=== PATIENT | female | born 1980 | race Caucasian/White ===

== ENCOUNTER → 2018-03-02 11:03 | Outpatient (REF) | payer MEDICAID, SELFPAY | LOC: LAB 11:03 | PROVIDERS: Visit Provider Physician Assistant | DX: R31.9 Hematuria, unspecified (principal) | CPT/HCPCS: 87086; 87088; 87186 ==

== ENCOUNTER 2018-03-23 11:06 | Outpatient (CLI) | payer MEDICAID, SELFPAY ==
[2018-03-23 13:46] VITALS: BMI 20.3
--- NOTE | 2018-03-23 13:50 | XR_ITS ---
XR chest portable PICC plac HISTORY: ITS.REASON: PICC line placement ORDERING PHYSICIAN: LEANN Zuniga PATIENT AGE: 37 years COMPARISON: None FINDINGS: The cardiomediastinal silhouette and pulmonary vascularity are within normal limits. The lungs are clear without infiltrates, suspicious nodules, or pleural effusions. PICC line has been placed by the left upper extremity approach with the tip in good position in the region of the superior vena cava. No acute bony abnormalities. IMPRESSION: Good position of PICC line tip
[2018-03-23 14:01] VITALS: BMI 18.1
[2018-03-23 14:32] VITALS: BP 109/69; PULSE 78; RESP 18; TEMP 36.5; O2SAT 99
[2018-03-23 15:02] VITALS: BP 105/67; PULSE 74; RESP 18; O2SAT 99
[2018-03-23 15:15] VITALS: BP 105/63; PULSE 71; RESP 18; O2SAT 98
== END 2018-03-23 15:20 | disposition home or self-care (01) ==
LOC: LAB 12:44 → INF 13:48
PROVIDERS: PCP Physician Assistant; Visit Provider Physician Assistant
DX: N39.0 Urinary tract infection, site not specified (principal)
CPT/HCPCS: 36569; 71045; 87086; 87088; 87186; 96365; C1751

== ENCOUNTER 2018-03-24 13:34 | Outpatient (CLI) | payer MEDICAID, SELFPAY ==
[2018-03-24 13:50] VITALS: BP 84/47; PULSE 74; RESP 18; TEMP 36.9; O2SAT 98
[2018-03-24 14:10] VITALS: BP 101/54; PULSE 75; RESP 18; TEMP 36.6; O2SAT 98
[2018-03-24 14:30] VITALS: BP 110/54; PULSE 69; RESP 18; TEMP 36.6; O2SAT 97
== END 2018-03-24 14:40 | disposition home or self-care (01) ==
LOC: INF 13:34
PROVIDERS: Family Provider Nurse Practitioner Family; PCP Physician Assistant; Visit Provider Physician Assistant
DX: N39.0 Urinary tract infection, site not specified (principal)
CPT/HCPCS: 96365

== ENCOUNTER 2018-03-25 12:50 | Outpatient (CLI) | payer MEDICAID, SELFPAY ==
[2018-03-25 12:45] VITALS: BP 89/46; PULSE 74; RESP 18; TEMP 36.7; O2SAT 99
[2018-03-25 13:15] VITALS: BP 92/49; PULSE 78; RESP 18; O2SAT 98
[2018-03-25 13:25] VITALS: BP 94/50; PULSE 75; RESP 18; O2SAT 98
== END 2018-03-25 13:25 | disposition home or self-care (01) ==
LOC: INF 13:07
PROVIDERS: Family Provider Nurse Practitioner Family; PCP Physician Assistant; Visit Provider Physician Assistant
DX: N30.01 Acute cystitis with hematuria (principal); N39.0 Urinary tract infection, site not specified
CPT/HCPCS: 36569; 96365

== ENCOUNTER 2018-03-26 12:15 | Outpatient (CLI) | payer MEDICAID, SELFPAY ==
[2018-03-26 12:35] VITALS: BP 93/63; PULSE 82; RESP 16
[2018-03-26 13:05] VITALS: BP 91/68; PULSE 86; RESP 16
== END 2018-03-26 13:25 | disposition home or self-care (01) ==
LOC: INF 12:18
PROVIDERS: Family Provider Nurse Practitioner Family; PCP Physician Assistant; Visit Provider Physician Assistant
DX: N39.0 Urinary tract infection, site not specified (principal)
CPT/HCPCS: 96365; J1335

== ENCOUNTER 2018-03-27 12:53 | Outpatient (CLI) | payer MEDICAID, SELFPAY ==
[2018-03-27 13:18] VITALS: BP 104/57; PULSE 79; RESP 16; TEMP 36.6; O2SAT 98
[2018-03-27 13:41] VITALS: BP 102/77; PULSE 76; RESP 16; TEMP 36.6; O2SAT 98
== END 2018-03-27 13:42 | disposition home or self-care (01) ==
PROVIDERS: Family Provider Nurse Practitioner Family; PCP Physician Assistant; Visit Provider Physician Assistant
DX: N39.0 Urinary tract infection, site not specified (principal)
CPT/HCPCS: 96365; J1335

== ENCOUNTER 2018-03-28 12:25 | Outpatient (CLI) | payer MEDICAID, SELFPAY ==
[2018-03-28 12:38] VITALS: BP 92/55; BP 94/54; PULSE 73; PULSE 81; RESP 18; RESP 20; TEMP 36.4; TEMP 36.7; O2SAT 100; O2SAT 96
== END 2018-03-28 13:13 | disposition home or self-care (01) ==
LOC: INF 12:26
PROVIDERS: Family Provider Nurse Practitioner Family; PCP Physician Assistant; Visit Provider Physician Assistant
DX: N39.0 Urinary tract infection, site not specified (principal)
CPT/HCPCS: 96365; J1335

== ENCOUNTER 2018-03-29 12:25 | Outpatient (CLI) | payer MEDICAID, SELFPAY ==
[2018-03-29 12:45] VITALS: BP 94/55; PULSE 72; RESP 18; TEMP 37
[2018-03-29 13:15] VITALS: BP 94/60; PULSE 78; RESP 18
== END 2018-03-29 13:45 | disposition home or self-care (01) ==
LOC: INF 12:32
PROVIDERS: Family Provider Nurse Practitioner Family; PCP Physician Assistant; Visit Provider Physician Assistant
DX: N39.0 Urinary tract infection, site not specified (principal)
CPT/HCPCS: 96365; J1335

== ENCOUNTER 2018-03-30 12:53 | Outpatient (CLI) | payer MEDICAID, SELFPAY ==
[2018-03-30 13:20] VITALS: BP 90/61; PULSE 68; RESP 20; TEMP 36.7; O2SAT 96
[2018-03-30 13:55] VITALS: BP 102/68; PULSE 68; RESP 20; TEMP 37.1; O2SAT 98
== END 2018-03-30 14:00 | disposition home or self-care (01) ==
LOC: INF 12:54
PROVIDERS: Family Provider Nurse Practitioner Family; PCP Physician Assistant; Visit Provider Physician Assistant
DX: N39.0 Urinary tract infection, site not specified (principal)
CPT/HCPCS: 96365; J1335

== ENCOUNTER 2018-04-06 16:37 | Outpatient (CLI) | payer MEDICAID, SELFPAY ==
[2018-04-06 16:46] VITALS: BP 122/70; PULSE 68; RESP 20; TEMP 37.1; O2SAT 98
== END 2018-04-06 16:45 | disposition home or self-care (01) ==
LOC: INF 16:37
PROVIDERS: Family Provider Nurse Practitioner Family; PCP Physician Assistant; Visit Provider Physician Assistant
DX: Z45.2 Encounter for adjustment and management of vascular access device (principal)
CPT/HCPCS: G0463

== ENCOUNTER → 2018-08-09 11:56 | Outpatient (CLI) | payer MEDICAID, SELFPAY ==
--- NOTE | 2018-08-09 11:58 | XR_ITS ---
XR lumbar spine min 4V Ordering Physician: LEANN Zuniga Patient Age: 37 years: Female HISTORY: ITS.REASON: Low back pain Low back pain for several months. No injury. TECHNIQUE: 5 view lumbar spine series COMPARISON :None FINDINGS the lumbar vertebral bodies are intact. Normal alignment. No acute fracture nor subluxation. The pedicles intact. I would note that S1 is somewhat transitional in character and demonstrates localization on the left but is sacralized on the right. Segmentation between S1 and S2 vertebral segments. . Degenerative facet changes suggested at L5/S1 most evident. Narrowing and sclerosis at this facet with perhaps minimal hypertrophy. Right greater than left. . There may also be some mild enlargement, mild prominence of the right L3/4 facet as seen particularly on the frontal projection. Pedicles are intact There is a vertical line through the left L1 transverse process. Most likely developmental variant. Less likely old injury here. . In either case this appearance unchanged since a October 2014 CXR. The transverse processes unremarkable by plain film. . There is a slightly irregular contour at the inferior sacrum could not exclude old injury here The patient is surprisingly extensive costochondral calcifications for age throughout partially visualized lower ribs. IMPRESSION...... 1. No acute findings. Disc spaces well-maintained throughout 2. 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 Segmentation S1/S2 with Partial lumbarization S1 to the left 3.. Developing Degenerative Hypertrophic facet changes most evident L5/S1, right more than left 4. Suspect mild facet hypertrophy to the right at L3/4 . 5. Other minor observations in text
== END ==
PROVIDERS: PCP Physician Assistant; Visit Provider Physician Assistant
DX: M54.5 Low back pain (principal)
CPT/HCPCS: 72110

== ENCOUNTER 2018-08-30 09:48 | Outpatient (RCR) | payer MEDICAID, SELFPAY ==
--- NOTE | 2018-08-30 10:38 | HMH.PTOPEV ---
PT Outpatient Evaluation Rehab PT Outpatient Evaluation Start: 08/30/18 10:19 Freq: Status: Active Protocol: Document 08/30/18 10:20 ADRIAN (Rec: 08/30/18 10:38 ADRIAN [id number]) Electronically Signed By Randy Fairbanks, PT 08/30/18 10:20 Outpatient Therapy Subjective History Subjective History Pt reports insidious onset LBP beginning ~4 weeks ago. Pt reports midline LBP that radiates into B glut area and B groin area, emil. w/lifting activities. Pt reports decreased pain since starting prescription NSAIDS. Chief Complaint Pain Symptom Type Ache Sharp Dull Symptoms Relieved By Heat Prescription Meds Symptoms Aggravated By Bending/Stooping Physical Activity Walking Lifting Prior Functional Limitations None Current Functional Limitations Lifting Housework Walking Bending/Stooping Symptom Description Intermittent Level of pain today (0-10) 1 Pain scale - at its best (0-10) 0 Pain scale - at its worst (0-10) 8 Lumbopelvic Eval Posture Thoracic Spine Posture Standing Position Neutral Lumbar Spine Posture Standing Position Neutral Assistive device Assistive Devices None / NA Gait Observation General Gait Pattern Observation Antalgic Gait Palapation tenderness right paraspinal tenderness Yes: 3/4 buttock tenderness Yes: 3/4 Lumbar/Sacral Palpation Findings Tenderness left paraspinal tenderness Yes: 1/4 buttock tenderness Yes: 3/4 Lumbar/Sacral Palpation Findings Tenderness Accessory Movement L-spine Vertebrae Accessory Movements Right P/A [place] that Elicit Symptoms S1 right Range of Motion Lumbar Spine Active Flexion Range of 0-80 Motion (degrees) Lumbar Spine Active Extension Range of 0-15 Motion (degrees) Left Lumbar Spine Lateral Flexion Active 0-20 Range of Motion (degrees) Right Lumbar Spine Lateral Flexion 0-20 Active Range of Motion (degrees) Lumbar Spine ROM Limitations Pain Manual Muscle Test Bilateral Knee Extension Strength Grade 5 Normal Knee Flexion Strength Grade 5 Normal Hip Flexion Strength Grade 4- Good- Hip Internal Rotation Strength Grade 4- Good- Hip Extension Strength Grade 4- Good-
== END 2018-08-30 10:00 | disposition home or self-care (01) ==
LOC: PT 09:48
PROVIDERS: Visit Provider Physician Assistant
DX: M54.9 Dorsalgia, unspecified (principal); M54.5 Low back pain
CPT/HCPCS: 97163

== ENCOUNTER → 2018-09-01 15:17 | Outpatient (CLI) | payer MEDICAID, SELFPAY | PROVIDERS: Visit Provider Physician Assistant | DX: R31.9 Hematuria, unspecified (principal) | CPT/HCPCS: 87086; 87088; 87186 ==

== ENCOUNTER → 2018-10-14 14:18 | Outpatient (CLI) | payer MEDICAID, SELFPAY | PROVIDERS: Visit Provider Nurse Practitioner Family | DX: R30.0 Dysuria (principal) | CPT/HCPCS: 87086; 87088; 87186 ==

== ENCOUNTER → 2018-11-05 09:38 | Outpatient (CLI) | payer MEDICAID, SELFPAY ==
--- NOTE | 2018-11-05 09:42 | CT_ITS ---
CT abdomen pelvis wo/w con CLINICAL INDICATION: ITS.REASON: Hematuria, Proteinuria ORDERING PHYSICIAN: Garland Leahy MD PATIENT AGE: 38 years COMPARISON: None TECHNIQUE: Axial images obtained without and with contrast with sagittal and coronal reformats. All CT scans at the facility use one or more dose reduction, viz: automated exposure control, ma/kV adjustment per patient size (including targeted exams where dose is matched to indication, i.e. head), or iterative reconstruction technique. PROCEDURE: Oral Contrast: None IV Contrast: 75 mL of Isovue-370. FINDINGS: The lung bases are clear. The liver, gallbladder, spleen, adrenal glands, and pancreas have an unremarkable appearance. No renal or ureteral calculi. No hydronephrosis. No renal mass. No intestinal obstruction or free air. There is a small umbilical hernia containing fat. Unremarkable appendix. There is prominence of the periuterine vessels and adnexal vessels. This is nonspecific. There are bilateral ovarian cysts measuring up to 3 cm on the right. There is a septated left ovarian cyst which measures 4.5 cm. A small amount fluid is present in the cul-de-sac. On the post enhanced images there is some asymmetric increased density in the left posterior aspect of the urinary bladder. This has a somewhat rounded contour but the margins are ill-defined medially. This may represent mixing of opacified and unopacified urine. A lesion in the urinary bladder at this area is also a consideration. No acute bony anomalies. IMPRESSION: 1. Prominent periuterine and adnexal vessels. Pelvic congestion syndrome is a consideration. 2. Bilateral ovarian cysts measuring 3 cm on the right and 4.5 cm on the left. Left ovarian cyst does have a septation. Pelvic ultrasound may be of further value. 3. Asymmetric increased density in the left aspect of urinary bladder on the post enhanced images. This male and be related to mixing of opacified and unopacified urine. Cannot exclude a lesion at this area in this patient with hematuria. Ultrasound of the urinary bladder may be of further value
== END ==
PROVIDERS: PCP Physician Assistant; Visit Provider Urology
DX: R31.9 Hematuria, unspecified (principal)
CPT/HCPCS: 74178; Q9967

== ENCOUNTER → 2019-05-10 14:27 | Outpatient (CLI) | payer MEDICAID, SELFPAY | PROVIDERS: Visit Provider Nurse Practitioner Family | DX: R10.9 Unspecified abdominal pain (principal); R35.0 Frequency of micturition | CPT/HCPCS: 87086; 87088; 87186 ==

== ENCOUNTER → 2019-06-16 14:28 | Outpatient (CLI) | payer MEDICAID, SELFPAY | PROVIDERS: Visit Provider Urology | DX: C67.9 Malignant neoplasm of bladder, unspecified (principal) | CPT/HCPCS: 87086; 87088; 87186 ==

== ENCOUNTER → 2020-02-16 12:01 | Outpatient (CLI) | payer BC, SELFPAY | PROVIDERS: Visit Provider Urology | DX: N39.0 Urinary tract infection, site not specified (principal) | CPT/HCPCS: 87086; 87088; 87186 ==

== ENCOUNTER 2020-04-14 13:12 | Emergency (ER) | payer BC, SELFPAY ==
[2020-04-14 13:33] VITALS: BP 104/67; PULSE 82; RESP 18; TEMP 36.8; O2SAT 100; BMI 17.6
--- NOTE | 2020-04-14 14:04 | HMH.EDUTC ---
[facility] [place] Clinical Impression: Impacted cerumen of left ear Disposition: Home, Self-Care Condition on Discharge: Good Instructions: DI for Cerumen Impaction, Cerumen Impaction Additional Instructions: Continue to use Debrox as instructed on package as needed for Cerumen impaction *FOllow up with Family Doctor if needed Return if needed Straight to ER if any life threatening symptoms Referrals: Bebeto Loera [Primary Care Provider] - As needed Time of Disposition: 14:23 Medical Decision Making - Rony Inquiry Pt receiving controlled substance: No Rony was queried for this patient: No Vital Signs: 04/14/20 13:33 Temperature 98.2 F Temperature Source Oral Pulse Rate [Right Brachial] 82 Respiratory Rate 18 Blood Pressure [Right Arm] 104/67 L Blood Pressure Mean [Right Arm] 79 Blood Pressure Source [Right Arm] Automatic Cuff Blood Pressure Position [Right Arm] Sitting 02 Sat by Pulse Oximetry 100 Oxygen Delivery Method Room Air [facility] [place] HPI - General Stated complaint: ear pain Time Seen by Provider: 04/14/20 14:05 Mode of Arrival: Ambulatory Source of Information: Patient Limitations: No Limitations Description of Symptoms (Recalled from Triage Doc. by RN): PATIENT C/O LEFT EAR ACHE X 4 DAYS HEENT Symptoms (Recalled from RN notes): Yes Resp Symptoms (Recalled from RN notes): No Skin Symptoms (Recalled from RN notes): No MS Symptoms (Recalled from RN notes): No Functional Status (Recalled from RN notes): WNL - History of Present Illness Provider Complaint: Patient states that it feels like there is something stopping up her left ear States that she bought some over the counter Debrox and has been using it but not been able to get anything out States that she hasnt been able to hear out of it and not sure if she has an ear infection or her ear is stopped up - Related Data Previous Rx's Medication Instructions Recorded linaclotide 290 mcg capsule See Rx Instructions .ROUTE 05/12/19 .COMPLEX #90 cap nitrofurantoin macrocrystal 100 mg 100 mg PO Q12H 7 Days #14 cap 05/12/19 capsule pantoprazole 40 mg tablet,delayed 40 mg PO DAILY #30 tab 05/12/19 release omeprazole 40 mg capsule,delayed See Rx Instructions .ROUTE 08/18/19 release .COMPLEX #90 cap Allergies Allergy/AdvReac Type Severity Reaction Status Date / Time sulfamethoxazole Allergy Rash Verified 02/16/20 10:21 [From Bactrim] trimethoprim [From Bactrim] Allergy Rash Verified 02/16/20 10:21 - Worker's Comp Is this a Worker's Comp case?: No [facility] History - Hepatitis A Screen Drug use history?: No High risk sexual behaviors?: No History of sexually transmitted infection?: No Currently employed?: No Childcare worker?: No Do you have indoor plumbing?: Yes Do you have electricity?: Yes Attestation statement:: This patient has been screened for Hepatitis A risk factors. I have reviewed the patient's past medical history: Yes Medical History: Reports:: Anxiety, Depression, Gastroesophageal Reflux Disease(GERD) Denies:: Cancer, Diabetes Mellitus Type 1, Diabetes Mellitus Type 2, Internal Pacemaker, MRSA, Seizures Other Medical History: Reports: Other. Denies: Blood Transfusion Reaction Comment: CONSTIPATION Other Surgeries: Yes: No Previous Surgery, Tubal Ligation, Other. No: Cardiac Catheterization, Pacemaker Amputation: No Fractures: No Comment: PPBTL--2016,cystoscopy with removal bladder tumor - Social History Smoking Status: Current every day smoker Tobacco Type: cigarettes # Packs/Day (cigarettes): 1 #Yrs smoked (if former smoker): 20 Alcohol Intake: never Alcohol Intake Frequency:: a few times a month Substance Use Type: denies use Occupational Status: other Housing: house Household Members: spouse, children - Psychiatric History Pschychiatric History:: Reports:: Anxiety, Depression Family Hx:: Coronary Artery Disease, Cancer, Hyperlipidemia, Hypertension ROS Obtained: Yes All systems revi
[2020-04-14 14:25] VITALS: BP 104/67; PULSE 82; RESP 18; TEMP 36.8; O2SAT 100
== END 2020-04-14 14:28 | disposition home or self-care (01) ==
LOC: ER 13:19 → UTC 13:28
PROVIDERS: Emergency Provider Nurse Practitioner; PCP Internal Medicine
DX: H92.02 Otalgia, left ear (principal); H61.22 Impacted cerumen, left ear; K21.9 Gastro-esophageal reflux disease without esophagitis; F41.8 Other specified anxiety disorders; F17.210 Nicotine dependence, cigarettes, uncomplicated; Z88.2 Allergy status to sulfonamides
CPT/HCPCS: 99201

== ENCOUNTER → 2020-08-18 08:17 | Outpatient (CLI) | payer BC, SELFPAY ==
[2020-08-18 12:53] LABS: Coronavirus 19 IgG Antibody Negative (Negative); Coronavirus 19 IgM Antibody Negative (Negative)
== END ==
PROVIDERS: Visit Provider Urology
DX: Z01.818 Encounter for other preprocedural examination (principal); C67.9 Malignant neoplasm of bladder, unspecified
CPT/HCPCS: 36415; 86328

== ENCOUNTER 2020-08-20 08:33 | Day surgery (SDC) | payer BC, SELFPAY ==
[2020-08-16 13:37] VITALS: BMI 17.6
[2020-08-20 08:49] VITALS: BP 97/60; PULSE 86; RESP 14; TEMP 36.7; O2SAT 100
[2020-08-20 09:40] VITALS: BP 100/65; PULSE 74; RESP 16; TEMP 36.6; O2SAT 100
--- NOTE | 2020-08-20 12:02 | P.OP_ITS ---
Date of procedure: 08/20/20 Pre-op Diagnosis:: History of bladder cancer Post-op Diagnosis:: History of bladder cancer Procedure performed:: Surveillance cystoscopy Surgeon:: Garland Leahy MD Anesthesia: local Estimated blood loss (mL): 0 Clinical Note:: 39-year-old white female with history of superficial bladder cancer presents for her first 6-month cystoscopic evaluation. She denies any interval gross hematuria. She does continue to smoke. Operative findings:: No evidence of bladder tumor recurrence Operative note:: Patient taken to the operating room after informed consent was obtained. She was placed on the stretcher in the frog-leg position and prepped and draped in the standard surgical fashion. 2% lidocaine placed into the urethra and after 5 minutes the flexible cystoscope introduced into the urethral meatus. Passed into the bladder without difficulty and the bladder examined in a systematic fas hion. There is no evidence of recurrent bladder tumors. There is no evidence of stones, trabeculation or cellule formation. There was some squamous metaplasia around the bladder neck and anterior trigonal region. The ureteral orifices in their normal anatomic position with clear efflux of urine noted. The bladder neck and urethra were normal as well. The scope removed patient tolerated procedure well. We discussed the normal findings today and I will send her home on a prophylactic course of Macrobid see her back in 6 months for cystoscopy. Condition: stable Disposition: same day Specimens:: None Complications:: None
--- NOTE | 2021-02-18 12:49 | P.OP_ITS ---
Date of procedure: 02/18/21 Pre-op Diagnosis:: History of bladder cancer Post-op Diagnosis:: No recurrence Procedure performed:: Surveillance cystoscopy Surgeon:: Garland Leahy MD Anesthesia: local Estimated blood loss (mL): 0 Clinical Note:: Patient with history of bladder cancer presents for her second 6-month cystoscopy. She denies any interval hematuria. She does continue to smoke. Operative findings:: No evidence of bladder tumor recurrence. Operative note:: Patient taken to the cystoscopy suite after informed consent was obtained. On the stretcher she was placed in the frog-leg position and prepped and draped in the standard surgical fashion. 2% lidocaine placed into the urethra and after 5 minutes the flexible cystoscope introduced into the urethral meatus and into the bladder. There was some mild resistance at the bladder neck. The bladder was examined in a systematic fashion. There is no evidence of mucosal abnormalities, stones, bladder tumor recurrence, trabeculation or cellule formation. The ureteral orifices in their normal anatomic position and clear efflux of urine was noted from each. A mild amount of squamous metaplasia noted at the 6 o'clock position near the bladder neck. Bladder neck and urethra were normal. Scope removed patient tolerated procedure well there are no com plications. We discussed the findings today we will see her back in 1 year in follow-up. Condition: stable Disposition: same day Specimens:: None Complications:: None
== END 2020-08-20 09:55 | disposition home or self-care (01) ==
LOC: OUTP 08:34
PROVIDERS: PCP Internal Medicine; Visit Provider Urology
PROC: (CPT 52000; principal; 2020-08-20 09:00)
DX: Z08 Encounter for follow-up examination after completed treatment for malignant neoplasm (principal); Z85.51 Personal history of malignant neoplasm of bladder; N32.89 Other specified disorders of bladder; Z90.6 Acquired absence of other parts of urinary tract; Z88.2 Allergy status to sulfonamides; Z79.899 Other long term (current) drug therapy
CPT/HCPCS: 52000

== ENCOUNTER → 2021-02-15 08:11 | Outpatient (CLI) | payer BC, SELFPAY | PROVIDERS: Visit Provider Urology | DX: Z01.812 Encounter for preprocedural laboratory examination (principal); Z11.52 Encounter for screening for COVID-19; C67.9 Malignant neoplasm of bladder, unspecified | CPT/HCPCS: U0003 ==

== ENCOUNTER 2021-02-18 09:28 | Day surgery (SDC) | payer BC, SELFPAY ==
[2021-02-13 11:45] VITALS: BMI 17.8
[2021-02-18 09:54] VITALS: BP 110/61; PULSE 86; RESP 18; TEMP 36.6; O2SAT 99
[2021-02-18 11:55] VITALS: BP 90/59; PULSE 72; RESP 20; TEMP 37.1; O2SAT 100
--- NOTE | 2021-02-21 15:44 | HMH.OPNOTE ---
Date of procedure: 02/21/21 Pre-op Diagnosis:: History of bladder cancer Post-op Diagnosis:: No evidence of bladder cancer recurrence today Procedure performed:: Surveillance cystoscopy Surgeon:: Garland Leahy MD Anesthesia: local Estimated blood loss (mL): 0 Clinical Note:: 40-year-old white female with history of bladder cancer returns for her second 6-month cystoscopy. She denies any interval hematuria. She does continue to smoke. Operative findings:: No evidence of bladder tumor recurrence. Operative note:: Patient taken to the cystoscopy suite after informed consent was obtained. On the stretcher she was placed in the frog-leg position and prepped draped in the standard surgical fashion and 2% lidocaine placed into the urethra. After 5 minutes the flexible cystoscope introduced into the urethral meatus and passed to the bladder neck, there was a little bit of resistance but scope passed into the bladder with minimal difficulty. The bladder was examined in a systematic fashion. There is no evidence of bladder tumor recurrence, mucosal abnormalities, stones, trabeculation or diverticular formation. The ureteral orifices in their normal anatomic position and clear efflux of urine was noted. The bladder neck and urethra were within normal limits. The scope removed patient tolerated the procedure well there are no complications. We will see her back in 1 year for surveillance cystoscopy. Condition: stable Disposition: same day Specimens:: None Complications:: None
== END 2021-02-18 11:55 | disposition home or self-care (01) ==
LOC: OUTP 09:30
PROVIDERS: PCP Internal Medicine; Visit Provider Urology
PROC: (CPT 52000; principal; 2021-02-18 10:30)
DX: Z85.51 Personal history of malignant neoplasm of bladder (principal); Z08 Encounter for follow-up examination after completed treatment for malignant neoplasm; K21.9 Gastro-esophageal reflux disease without esophagitis; F41.9 Anxiety disorder, unspecified; F32.9 Major depressive disorder, single episode, unspecified; Z88.1 Allergy status to other antibiotic agents; Z79.899 Other long term (current) drug therapy
CPT/HCPCS: 52000

== ENCOUNTER → 2022-02-14 14:38 | Outpatient (CLI) | payer BC, SELFPAY | PROVIDERS: Visit Provider Pathology Anatomic Pathology & Clinical Pathology | DX: Z01.812 Encounter for preprocedural laboratory examination (principal); Z11.52 Encounter for screening for COVID-19; C67.9 Malignant neoplasm of bladder, unspecified | CPT/HCPCS: C9803; U0003; U0005 ==

== ENCOUNTER 2022-02-17 09:43 | Day surgery (SDC) | payer BC, SELFPAY ==
[2022-02-14 10:53] VITALS: BMI 17.8
[2022-02-17 09:55] VITALS: BP 107/67; PULSE 75; RESP 18; TEMP 37.6; O2SAT 100
[2022-02-17 10:24] VITALS: BP 94/62; PULSE 67; RESP 16; TEMP 36.7; O2SAT 99
--- NOTE | 2022-02-17 10:32 | P.OP_ITS ---
Date of procedure: 02/17/22 Pre-op Diagnosis:: History of bladder cancer Post-op Diagnosis:: History of bladder cancer without evidence of recurrence today. Procedure performed:: Cystoscopy Surgeon:: Garland Leahy MD Anesthesia: local Estimated blood loss (mL): 0 Clinical Note:: 41-year-old white female with history of bladder cancer returns for 1 year cystoscopy. She denies any gross hematuria. Operative findings:: No evidence of bladder tumor recurrence today. Operative note:: Patient taken to the endoscopy suite after informed consent was obtained. On the stretcher she was placed in the frog-leg position and prepped and draped in a standard surgical fashion introducing lidocaine placed into the urethra. Aft er 5 minutes the flexible cystoscope introduced into the urethral meatus. Passed into the bladder without difficulty and the bladder examined in a systematic fashion. There is no evidence of bladder tumor recurrence, mucosal abnormalities, trabeculation, cellules or diverticula. The ureteral orifices in their normal anatomic position with clear efflux of urine. The scope was retroflexed showing no evidence of bladder neck abnormalities. The scope then removed and the urethra appeared normal. Patient tolerated well we discussed the findings we will see her back in 1 year follow-up. Condition: stable Disposition: same day Specimens:: None Complications:: None
== END 2022-02-17 10:30 | disposition home or self-care (01) ==
LOC: OUTP 09:44
PROVIDERS: PCP Internal Medicine; Visit Provider Urology
PROC: (CPT 52000; principal; 2022-02-17 10:00)
DX: Z08 Encounter for follow-up examination after completed treatment for malignant neoplasm (principal); Z85.51 Personal history of malignant neoplasm of bladder; Z87.19 Personal history of other diseases of the digestive system; Z90.49 Acquired absence of other specified parts of digestive tract; F41.9 Anxiety disorder, unspecified; F32.A Depression, unspecified; K21.9 Gastro-esophageal reflux disease without esophagitis; Z88.1 Allergy status to other antibiotic agents; Z79.899 Other long term (current) drug therapy
CPT/HCPCS: 52000

== ENCOUNTER 2024-01-29 14:05 | Outpatient (CLI) | payer BC, SELFPAY ==
--- NOTE | 2024-01-29 14:15 | XR_ITS ---
FINAL REPORT CLINICAL HISTORY: ABN PROMINENCE OF RIB FINDINGS: BILATERAL RIBS WITH CHEST A single PA view of the chest and 4 views of the bilateral ribs were obtained. The heart and mediastinum within normal limits. The lungs are clear. There is no pneumothorax. There is no acute displaced rib fracture. There is dense calcification of the costochondral cartilage. IMPRESSION: No acute cardiopulmonary process or displaced rib fracture. Reviewed, Interpreted and Dictated by Isai Simons MD Transcribed by Neelima Rojas Authenticated and . [facility]
== END 2024-01-29 23:59 | disposition home or self-care (01) ==
LOC: RAD 14:06
PROVIDERS: PCP Nurse Practitioner Family; Visit Provider Nurse Practitioner Family
DX: Q76.6 Other congenital malformations of ribs (principal)
CPT/HCPCS: 71111

== ENCOUNTER 2025-03-26 11:23 | Emergency (ER) | payer MEDICAID, SELFPAY ==
[2025-03-26] VITALS (9 sets, daily range): BP systolic 103–123; BP diastolic 60–76; PULSE 59–86; RESP 14–18; TEMP 36.8–36.9; O2SAT 96–100; BMI 16.2
--- OUTSIDE RECORDS SUMMARY | 2025-03-26 11:35 | XMS_ITS | Data Portability ---
Author Organization [facility] & QUAN Gray ADMIN Address [address] [place] [address] Assessment No assessment recorded. Plan of Treatment Reminders Order Date Submit Date Provider Last Modified By Organization Details Last Modified Time Details Appointments OV EST 15 2025 10:00A M Garland Leahy Jr, MD Not available Not available Not available Lab urinalysi s, dipstick 2023 05 024 [email or web address] [facility] [address], [address], 02/22/2024 08:00:42 Referral None recorded. Procedures None recorded. Surgeries None recorded. Imaging None recorded. Medication Orders None recorded. Patient TargetsNo targets recorded. Patient InstructionsNo instructions recorded. Reason for Referral None Reported. Results Created Date Observation Date Name Description Value Unit Range Abnormal Flag Note LastModifiedBy Organization Detail LastModifiedTime 02/19/20 24 02/19/2024 urina lysis , dipst ick Leukocytes (reference range) negati ve Not Available Adolfo [address], [address], 02/19/2024 11:53:04 02/19/20 24 02/19/2024 urina lysis , dipst ick Nitrite (reference range:) negati ve Not Available Adolfo [address], [address], 02/19/2024 11:53:04 02/19/20 24 02/19/2024 urina lysis , dipst ick Urobilinogen (reference range) 0.2 Not Available [address], [address], 02/19/2024 11:53:04 02/19/20 24 02/19/2024 urina lysis , dipst ick Protein (reference range) negati ve Not Available [address], [address], 02/19/2024 11:53:04 02/19/20 24 02/19/2024 urina lysis , dipst ick pH (reference range 5-8.5) 6.0 Not Available [address], [address], 02/19/2024 11:53:04 02/19/20 24 02/19/2024 urina lysis , dipst ick Blood (reference range:) modera te Not Available [address], [address], 02/19/2024 11:53:04 02/19/20 24 02/19/2024 urina lysis , dipst ick Specific [place] (reference range) 1.020 Not Available [address], [address], 02/19/2024 11:53:04 02/19/20 24 02/19/2024 urina lysis , dipst ick Ketone (reference range) trace Not Available [address], [address], 02/19/2024 11:53:04 02/19/20 24 02/19/2024 urina lysis , dipst ick Bilirubin (reference range) small Not Available [address], [address], 02/19/2024 11:53:04 02/19/20 24 02/19/2024 urina lysis , dipst ick Glucose (reference range) negati ve Not Available Adolfo [facility] [place] [address] [place], [address], 02/19/2024 11:53:04 Result Notes None recorded. Problems Name Problem SNOMED Code Status Onset Date Resolution Date Notes Provider Name and Address Organization Details Recorded Time Kidney stone 94202359 Active 023 Kristen Gee [place], [place] - [facility] [place] [facility] [place] 02/17/2023 09:48:48 Problem Notes None recorded. Procedures Surgical History Date Name Laterality Status Provider Name and Address Organization Details Recorded Time 5 Cystoscopy-Fema le completed Garland Leahy Jr, MD [address] [place] [address], [address], [place], [address], [place] [facility] [place] [facility] [place] 03/01/2025 11:13:05 4 Cystoscopy-Fema le completed Garland Leahy Jr, MD [address] [place] [address], [address], [place], [address], [place] [facility] [place] [facility] [place] 02/19/2024 16:53:54 3 Cystoscopy-Fema le completed Garland Leahy Jr, MD [address] [place] [address], [address], [place], [address], [place] [facility] [place] [facility] [place] 02/17/2023 10:49:52 2 completed Isaiah FLANNERY - [facility] [place] [facility] [place] 02/19/2024 10:15:38 0 Date of Last Pap Smear completed Isaiah FLANNERY - [facility] [place] [facility] [place] 02/19/2024 10:15:38 9 Date of Last Colonoscopy completed Isaiah FLANNERY - [facility] [place] [facility] [place] 02/19/2024 10:15:38 6 ligation of fallopian tube completed Kristen Gee FLANN[place] - [facility] [place] [facility] [place] 02/17/2023 09:49:29 Other completed Isaiah FLANNERY - [facility] [place] [facility] [place] 02/19/2024 10:15:51 Cancer Surgery completed Isaiah FLANNERY - [facility] 02/19/2024 10:15:51 Colonoscopy completed Isaiah FLANNERY [facility] 02/19/2024 10:15:51 Imaging Results None recorded. Procedure Notes None recorded. Medical Equipment None Reported. Allergies No known drug allergies Medications Name Sig Start Date Stop Date Status Note LastModified by Organization Details LastModified Time amoxicillin 500 mg capsule TAKE 1 CAPSULE BY MOUTH THREE TIMES DAILY UNTIL GONE active Not Available Not Available No t Available clindamycin HCl 300 mg capsule TAKE 1 CAPSULE BY MOUTH THREE TIMES DAILY FOR 7 DAYS active Not Available Not Available No t Available Retin-A 0.025 % topical cream APPLY A PEA SIZE AMOUNT TO FACE AT BEDTIME. FOLLOW WITH MOISTURIZ ER active Not Available Not Available No t Available ibuprofen 800 mg tablet TAKE 1 TABLET BY MOUTH EVERY 8 HOURS NEEDED FOR PAIN active Not Available Not Available No t Available fluconazole 150 mg tablet TAKE 1 TABLET BY MOUTH A ONE TIME DOSE REPEAT IN 3 DAYS active Not Available Not Available No t Available ciprofloxac in 250 mg tablet TAKE 1 TABLET BY MOUTH EVERY 12 HOURS FOR 7 DAYS active Not Available Not Available No t Available omeprazole 40 mg capsule,del ayed release active Not Available Not Available Not Available amoxicillin 875 mg tablet 02/16 completed Not Available Not Available Not Available hydrocodone 7.5 mg-acetamin ophen 325 mg tablet TAKE 1 TABLET BY MOUTH EVERY 4 TO 6 HOURS NEEDED FOR PAIN active Not Available Not Available No t Available mupirocin 2 % topical ointment APPLY OINTMENT TOPICALLY TWICE DAILY FOR 7 DAYS active Not Available Not Available No t Available ergocalcife rol (vitamin D2) 1,250 mcg (50,000 unit) capsule TAKE 1 CAPSULE BY MOUTH TWICE A WEEK active Not Available Not Available No t Available ondansetron 4 mg disintegrat ing tablet DISSOLVE 1 TABLET IN MOUTH EVERY 6 HOURS NEEDED FOR NAUSEA active Not Available Not Available No t Available cefdinir 300 mg capsule TAKE 1 CAPSULE BY MOUTH EVERY 12 HOURS FOR 7 DAYS active Not Available Not Available No t Available amoxicillin 875 mg-potassiu m clavulanate 125 mg tablet TAKE 1 TABLET BY MOUTH EVERY 12 HOURS active Not Available Not Available No t Available nitrofurant oin monohydrate /macrocryst als 100 mg capsule TAKE 1 CAPSULE BY MOUTH TWICE DAILY FOR 5 DAYS active Not Available Not Available No t Available Vitals Date Recorded Body height Body mass index (BMI) Body weight Body temperature Provider Name and Address Organization Details Last Updated DateTime 02/17/2023 170.18 cm 17.4 kg/m2 20469.75 g 98.1 [degF] Kristen Flynn [facility] & [place] 02/17/2023 09:48:21 Date Recorded Body height Body mass index (BMI) Body weight Body temperature Provider Name and Address Organization Details Last Updated DateTime 02/19/2024 170.18 cm 17.4 kg/m2 41852.75 g 97.5 [degF] Isaiah Redman [facility] & [place] 02/19/2024 10:15:25 Date Recorded Body height Body mass index (BMI) Body weight Body temperature Provider Name and Address Organization Details Last Updated DateTime 03/01/2025 170.18 cm 17.4 kg/m2 31383.75 g 98.1 [degF] Darian Cheung [facility] & [place] 03/01/2025 10:24:49 Social History Question Answer Notes LastModified by Embedly ion Details LastModified Time Tobacco Smoking Status Current Some Day Smoker Isaiah Redman [place], [facility] & [place] 02/19/2024 10:15:46 Do You Have An Advance Directive? No [email or web address] Information not available 02/19/2024 Are You Blind Or Do You Have Difficulty Seeing? No [email or web address] Information not available 02/19/2024 What Was The Date Of Your Most Recent Tobacco Screening? 02/15/2023 [email or web address] Information not available 02/19/2024 Are You Passively Exposed To Smoke? Yes [email or web address] Information not available 02/19/2024 How Much Tobacco Do You Smoke? 0.25 PPD [email or web address] Information not available 02/19/2024 How Many Years Have You Smoked Tobacco? 20 [email or web address] Information not available 02/19/2024 Sex: Female Functional Status Question Answer Note LastModified by Organizat ion Details LastModified Time Do you use any illicit or recreational drugs? No [email or web address] Information not available 02/19/2024 Do you or have you ever used any other forms of tobacco or nicotine? No [email or web address] Information not available 02/17/2023 What is your level of alcohol consumption? None [email or web address] Information not available 02/19/2024 Do you or have you ever used smokeless tobacco? Never used smokeless tobacco [email or web address] Information not available 02/19/2024 What is your exercise level? Moderate [email or web address] Information not available 02/19/2024 Mental Status Question Answer Note LastModified by Organization D etails LastModified Time Do you feel stressed (tense, restless, nervous, or anxious, or unable to sleep at night)? [id number] Information not available 02/19/2024 Family History Relationship Description Onset Age of this Age Resolved Age Notes LastModified by Organization Details LastModified Time Father No current problems or disability [email or web address] Not available 02/17 09:48:55 Mother No current problems or disability [email or web address] Not available 02/17 09:48:55 Medical History Condition Response Back Problems Y Gynecological History Statement/Question Response Abnormal Pap N 07/14/2022 Flow Heavy Date of Last Colonoscopy 02/07/2019 Date of LMP 02/02/2023 Sexually Active? Y Menses Monthly Y Duration of Flow (days) 7 Date of Last Pap Smear 04/11/2020 Obstetrics History GPAL:G 0 P 0 0 0 0 Past Encounters Encounter ID Performer Location Encounter Start Date Encounter Closed Date Diagnosis/Indication Diagnosis SNOMED-CT Code Diagnosis ICD10 Code Diagnosis Note [id number] Garland Leahy Jr, MD [facility] [address] [place] [address] 02/17/2023 09:45:11 02/17/2023 10:19:31 History of malignant neoplasm of bladder 526552436 Z85.51 42-year-ol d white female with history of bladder cancer diagnosed in the fall. pathology showed superficia l pathology and she returns today for 1 year surveillan ce cystoscopy . Cystoscopy today showed no evidence of recurrent tumors. She was reassured and we discussed continuing to work on her smoking cessation. She will return in 1 year for surveillan ce cystoscopy . [id number] Garland Leahy Jr, MD [facility] [address] [address] 02/19/2024 09:48:12 02/19/2024 10:50:28 History of malignant neoplasm of bladder 635284984 Z85.51 42-year-ol d white female with history of bladder cancer diagnosed in the fall. pathology showed superficia l pathology and she returns today for 1 year surveillan ce cystoscopy . Cystoscopy today showed no evidence of recurrent tumors. She was reassured and we discussed continuing to work on her smoking cessation. She will return in 1 year for surveillan ce cystoscopy . [id number] Garland Leahy Jr, MD [facility] [address] [address] 03/01/2025 10:08:41 03/01/2025 10:58:12 History of malignant neoplasm 807263567 Z85.51 42-year-ol d white female with history of bladder cancer diagnosed in the fall. pathology showed superficia l pathology and she returns today for 1 year surveillan ce cystoscopy . Cystoscopy today showed no evidence of recurrent tumors. She was reassured and we discussed continuing to work on her smoking cessation. She will return in 1 year for surveillan ce cystoscopy . Health Concerns Section Related Observation LastModified by Organization Detai ls LastModified Time None Recorded Concern Status LastModified by Organization Details LastModified Time None Recorded Advance Directives Directive N: Payers Insurance Date Sequence Insurance Name Policy Number Policy Yusuf Covered Member ID Yusuf Member ID Guarantor Name 03/01/2025 1 [facility] (MEDICAID HMO) [facility] [id number] [facility] 03/01/2025 1 [employer] [employer] [place] (HMO) [id number] [facility] Darrick [place] [id number] [facility] Notes Date Note Type Note Provider Name and Address Organization Details Recorded Time 02/17/2023 text/html Patient is a 42-year-old white female with a history of bladder cancer initially diagnosed in 2019. her last surveillance cystoscopy was 1 year ago without evidence of recurrence. Patient denies any interval hematuria. She has decreased her smoking but does continue. Garland Leahy Jr, MD [address] [place] [address], [address], [place], [address], [facility] - [facility] & [place] 02/17/2023 10:51:09 02/19/2024 text/html Patient is a 43-year-old white female with a history of bladder cancer initially diagnosed in 2019. She comes in today for surveillance cystoscopy. Her last cystoscopy was 1 year ago. She denies any interval hematuria. She has continued to decrease her cigarette intake but is still smoking. Urinalysis dips for moderate amount of blood today. Garland Leahy Jr, MD [address] [place] [address], [address], [address], [facility] - [facility] & [place] 02/19/2024 16:54:29 03/01/2025 text/html Patient is a 44-year-old white female with history of bladder cancer. She was initially diagnosed in 2019. She comes in today for 1 year surveillance cystoscopy. She has not had a recurrence. She continues to smoke cigarettes. She denies any interval hematuria. Pathology showed superficial transitional cell cancer. Garland Leahy Jr, MD [address] [place] [address], [address], [place], [address], [place] - [facility] & [place] 03/01/2025 11:15:47 OBGyn Episode No OBEpisode recorded.
--- OUTSIDE RECORDS SUMMARY | 2025-03-26 11:36 | XMS_ITS | Continuity of Care Document ---
Author Organization [facility] & [facility] [place] Address [address] [place] [address] Assessment No assessment recorded. Plan of Treatment Reminders Order Date Submit Date Provider Last Modified By Organization Details Last Modified Time Details Appointments OV EST 15 026 10:00AM Garland Leahy Jr, MD Not available Not available Not available Lab None record ed. Referral None record ed. Procedures None record ed. Surgeries None record ed. Imaging None record ed. Medication Orders None record ed. Patient TargetsNo targets recorded. Patient InstructionsNo instructions recorded. Reason for Referral None Reported. Problems Name Problem SNOMED Code Status Onset Date Resolution Date Notes Provider Name and Address Organization Details Recorded Time Kidney stone [id number] Active 023 Kristen Flynn cecilia [facility] & [place] 02/17/2023 09:48:48 Problem Notes None recorded. Procedures Surgical History Date Name Laterality Status Provider Name and Address Organization Details Recorded Time 5 Cystoscopy-Fema le completed Garland Leahy Jr, MD [address] [place] [address], [address], [address], [facility] & [place] 03/01/2025 11:13:05 4 Cystoscopy-Fema le completed Garland Leahy Jr, MD [address] [place] [address], [address], [address], [facility] & [place] 02/19/2024 16:53:54 3 Cystoscopy-Fema le completed Garland Leahy Jr, MD [address] [place] [address], [address], [address], [facility] [place] & [place] 02/17/2023 10:49:52 2 completed Isaiah Carlos [facility] & [place] 02/19/2024 10:15:38 0 Date of Last Pap Smear completed Isaiah GLASS [facility] & [place] 02/19/2024 10:15:38 9 Date of Last Colonoscopy completed Isaiah Carlos [facility] & [place] 02/19/2024 10:15:38 6 ligation of fallopian tube completed Kristen Carlos [facility] & [place] 02/17/2023 09:49:29 Other completed Isaiah Carlos [facility] & [place] 02/19/2024 10:15:51 Cancer Surgery completed Isaiah GLASS [facility] & [place] 02/19/2024 10:15:51 Colonoscopy completed Isaiah GLASS [facility] & [place] 02/19/2024 10:15:51 Imaging Results None recorded. Procedure [...] Updated DateTime 03/01/2025 170.18 cm 17.4 kg/m2 30412.75 g 98.1 [degF] Darian Khourygrabiel [facility] & [place] 03/01/2025 10:24:49 Social History Question Answer Notes LastModified by Organizat ion Details LastModified Time Tobacco Smoking Status Current Some Day Smoker Isaiah Redman cec[place], [facility] & [place] 02/19/2024 10:15:46 Do You Have An Advance Directive? No [email or web address] Information not available 02/19/2024 Are You Blind Or Do You Have Difficulty Seeing? No [email or web address] Information not available 02/19/2024 What Was The Date Of Your Most Recent Tobacco Screening? 02/15/2023 [email or web address] Information not available 02/19/2024 Are You Passively Exposed To Smoke? Yes [email or web address] Information not available 02/19/2024 How Much Tobacco Do You Smoke? 0.25 PPD [email or web address] Information not available 02/19/2024 How Many Years Have You Smoked Tobacco? 20 [email or web address] Information not available 02/19/2024 Sex: Female Functional Status Question Answer Note LastModified by Organizat ion Details LastModified Time Do you use any illicit or recreational drugs? No [email or web address] Information not available 02/19/2024 Do you or have you ever used any other forms of tobacco or nicotine? No [email or web address] Information not available 02/17/2023 What is your level of alcohol consumption? None [email or web address] Information not available 02/19/2024 Do you or have you ever used smokeless tobacco? Never used smokeless tobacco [email or web address] Information not available 02/19/2024 What is your exercise level? Moderate Information not available 02/19/2024 Mental Status Question Answer Note LastModified by Organization D etails LastModified Time Do you feel stressed (tense, restless, nervous, or anxious, or unable to sleep at night)? [id number] Information not available 02/19/2024 Family History Relationship Description Onset Age of this Age Resolved Age Notes LastModified by Organization Details LastModified Time Father No current problems or disability [email or web address] Not available 02/17 09:48:55 Mother No current problems or disability Not available 02/17 09:48:55 Medical History Condition [...] SNOMED-CT Code Diagnosis ICD10 Code Diagnosis Note [id number] Garland Leahy Jr, MD [facility] [address] [address] 03/01/2025 10:08:41 03/01/2025 10:58:12 History of malignant neoplasm [id number] Z85.51 42-year-ol d white female with history [...] by Organization Details LastModified Time None Recorded Payers Encounter Date Sequence Insurance Name Policy Number Policy Yusuf Covered Member ID Yusuf Member ID Guarantor Name 03/01/2025 1 [facility] (MEDICAID HMO) Cherri Cho [id number] Cherri Tucker Notes Date Note Type Note Provider Name and Address Organization Details Recorded Time 03/01/2025 text/html Patient is a 44-year-old white female with history of bladder cancer. She was initially diagnosed in 2019. She comes in today for 1 year surveillance cystoscopy. She has not had a recurrence. She continues to smoke cigarettes. She denies any interval hematuria. Pathology showed superficial transitional cell cancer. Garland Leahy Jr, MD [address] [place] [address], [address], [place], [address], [facility] - [facility] & [place] 03/01/2025 11:15:47 OBGyn Episode No OBEpisode recorded.
--- OUTSIDE RECORDS SUMMARY | 2025-03-26 11:36 | XMS_ITS | Encounter Summary ---
Author Organization Healthcare Address [address] [place] [address] Care Team Providers Care Vocational Case Manager Name Role Phone Margareth Bucio Primary Care Provider Reason for Visit * Reason Comments Med Refill Encounter Details Date Type Department Care Team (Late st Contact Info) Description 03/30/2023 Refill Obstetrics & Gynecology [address] [place] [address] Jemima Inman, [employer] [address] [place] [address] Social History Tobacco Use Types Packs/Day Years Used Date Smoking Tobacco: Every Day Cigarettes 0.5 20 Smokeless Tobacco: Never Alcohol Use Standard Drinks/Week Comments Never 0 (1 standard drink = 0.6 oz pur e alcohol) Comments No Sex and Gender Information Value Date Recorded Sex Assigned at Not on file Legal Sex Female 6:59 PM EDT Gender Identity Not on file Sexual Orientation Not on file documented as of this encounter Miscellaneous Notes * Telephone Encounter - Jemima Inman - 03/31/2023 5:04 PM EDT Needs an appt for annual and recheck Vit D * Telephone Encounter - Bettye Dalton - 03/31/2023 10:06 AM EDT Called pt back and informed she needs annual appt and we will recheck her levels at that time. Apptscheduled. Pt voiced understanding. * Telephone Encounter - Ludy Driver - 03/30/2023 3:22 PM EDT Patient missed call. Please try her again. [phone] * Telephone Encounter - Bettye Dalton - 03/30/2023 2:57 PM EDT Called left vm * Telephone Encounter - Jemima Inman - 03/30/2023 2:39 PM EDT Looks like due annual and we can recheck Vit D at that appt to see if appropriate for rx dose supplementation documented in this encounter Plan of Treatment Not on file documented as of this encounter Visit Diagnoses Not on filedocumented in this encounter Care Teams Vocational Case Manager Relationship Specialty Start Date End Date Margareth Bucio PA [address] [place] [address] PCP - General 02/15/21 documented as of this encounter
--- OUTSIDE RECORDS SUMMARY | 2025-03-26 11:36 | XMS_ITS | Clinical Summary ---
Author Organization Healthcare Address [address] [place] [address] Care Team Providers Care Riveter Pneumatic Name Role Phone Margareth Bucio Primary Care Provider Allergies No known active allergies Medications linaCLOtide (Linzess) 290 MCG capsule 05/18/2018 Active ergocalciferol 1.25 MG (46435 UT) capsule TAKE 1 CAPSULE BY MOUTH TWICE A WEEK 8 capsule 10/30/2023 Active Active Problems Problem Noted Date Diagnosed Date Menorrhagia with regular cycle 05/25/2023 Assessment & Plan (05/25/2023 12:35 PM EDT): -TVUS today- normal uterus and ovaries. No free fluid. No fibroids or polyps. -labs normal -discussed since that it is just a 1 time thing this month could be breakthrough bleeding. Recommended to watch to see if it continues - if it is can discuss treatment options with medication vs. surgical -RTC to follow up with Jemima on TVUS and lab results Yeast detected 02/12/2023 Assessment & Plan (02/12/2023 11:00 AM EDT): - one swab performed today for rell vs BV - Diflucan 150 mg ordered for treatment of yeast infection Vitamin B 12 deficiency 01/08/2021 Vitamin D deficiency 01/08/2021 Hot flashes 01/03/2021 Vaginal dryness 06/21/2020 Malignant neoplasm of posterior wall of urinary bladder 12/21/2018 Family History Medical History Relation Name Comments No Known Problems Brother No Known Problems Daughter No Known Problems Father No Known Problems Father's Brother COPD Maternal Grandfather Conversions - Other Maternal Grandfather cardiac pacemaker Arthritis Maternal Grandmother Sleep apnea Mother No Known Problems Mother's Brother Alzheimer's disease Paternal Grandfather Heart attack Paternal Grandmother Pancreatic cancer Paternal Grandmother Schizophrenia Sister No Known Problems Son Relation Name Status Comments Brother Alive Daughter Alive Father Alive Father's Brother Alive Maternal Grandfather Alive Maternal Grandmother Alive Mother Alive Mother's Brother Alive Paternal Grandfather Paternal Grandmother Sister Alive Son Alive Social History Tobacco Use Types Packs/Day Years Used Date Smoking Tobacco: Every Day Cigarettes 0.5 20 Smokeless Tobacco: Never Tobacco Cessation:Ready to Q uit: Not Asked; Counseling Given: Not Answered Alcohol Use Standard Drinks/Week Comments Never 0 (1 standard drink = 0.6 oz pur e alcohol) PHQ-2 Answer Date Recorded Patient Health Questionnaire-2 Score 0 08/24/2024 PHQ-2A Answer Date Recorded Patient Health Questionnaire-2 Score 1 04/14/2023 Comments No Sex and Gender Information Value Date Recorded Sex Assigned at Not on file Legal Sex Female 6:59 PM EDT Gender Identity Not on file Sexual Orientation Not on file Last Filed Vital Signs Vital Sign Reading Time Taken Comments Blood Pressure 102/69 08/24/2024 8:30 AM EST Pulse 70 08/24/2024 8:30 AM EST Temperature 36.1 C (97 F) 08/24/2024 8:30 AM EST Respiratory Rate 14 08/24/2024 8:30 AM EST Oxygen Saturation 99% 08/24/2024 8:30 AM EST Inhaled Oxygen Concentration - - Weight 45.8 kg (100 lb 15.5 oz) 08/24/2024 8:30 AM EST Height 170.2 cm (5' 7 ) 08/24/2024 8:30 AM EST Body Mass Index 15.81 08/24/2024 8:30 AM EST Plan of Treatment Health Maintenance Due Date Last Done Comments [facility]-Infant/Child/Adol SDOH Screenings 1980 [facility]-MENBS-13 Vaccine (#1) 1985 [facility]-Varicella Vaccines (1 of 2 - 13+ 2-dose series) 1993 [facility]- SDOH Screenings 1998 [facility]-Adult SDOH Screenings 1998 [facility]-DTaP,Tdap,and Td Vaccines (1 - Tdap) 1999 [facility]-Pneumococcal Vaccine: Pediatrics (0 to 5 Years) and At-Risk Patients (6 to 49 Years) (1 of 2 - PCV) 1999 [facility]-Zoster Vaccines (1 of 2) 1999 [facility]-Hepatitis B Vaccines (3 of 3 - Hep B Twinrix 3-dose series) 05/06/2009 12/04/2008, 10/25/2008 [facility]-Pap Smear 03/18/2025 03/18/2022 [facility]-Influenza Vaccine (Season Ended) 2025 [facility]-Depression Screening 08/24/2025 08/24/2024 [facility]-Cervical Cancer Screening 03/18/2027 [facility]-HPV/Cotest 03/18/2027 03/18/2022 [facility]-Hepatitis A Vaccines Aged Out 009, 10/25/2008 No longer eligible based on patient's age to complete this topic [facility]-HIV Screening Completed 05/13/2023 [facility]-Hepatitis C Screening Completed 05/13/2023 HPV Vaccines Aged Out No longer eligi ble based on patient's age to complete this topic [facility]-HIB Vaccines Aged Out No longer e ligible based on patient's age to complete this topic [facility]-IPV Vaccines Aged Out No longer e ligible based on patient's age to complete this topic [facility]-Rotavirus Vaccines Aged Out No lo nger eligible based on patient's age to complete this topic Procedures Procedure Name Priority Date/Time Associated Diagnosis Comments HEPATITIS C ANTIBODY W/REFLEX TO HCV QUANT PCR Routine 05/13/2023 10:29 AM EDT Irregular bleeding HIV 1/2 ANTIBODY/ANTIGEN SCREEN WITH REFLEX TO HIV I/II DIFFERENTIATION Routine 05/13/2023 10:29 AM EDT Irregular bleeding PAP TEST - CYTOLOGY Routine 03/18/2022 1 0:44 AM EDT Encounter for gynecological examination with abnormal finding from Last 3 Months or Most Recently Relevant to Health Maintenance Results * HIV 1 & 2 Antibody/Antigen Screen (05/13/2023 10:29 AM EDT) HIV 1 & 2 Antibody/Antigen Screen Non Reactive Non Reactive 05/13/2023 2:49 PM EDT [facility] Comment:Screening for HIV 1 & 2 antibodies, and P24 antigen is NONREACTIVE. No confirmatory testing is required. Blood Venous blood specimen / Unknown Venipuncture / Unknown 05/13/2023 10:29 AM EDT 05/13/2023 12:59 PM EDT us Jemima Inman APRN, CNM LAB BLOOD ORDERABLE S Final Result Performing Organization Address [facility] [employer] de Phone Number [facility] [address] [place] [address] * Hepatitis C Antibody w/Reflex to HCV Quant PCR (05/13/2023 10:29 AM EDT) Hepatitis C Antibody Negative Negative 05/13/2023 2:49 PM EDT [facility] Blood Venous blood specimen / Unknown Venipuncture / Unknown 05/13/2023 10:29 AM EDT 05/13/2023 12:59 PM EDT us Jemima Inman APRN, KENNETH LAB BLOOD ORDERABLE S Final Result Performing Organization Address [facility] de Phone Number [facility] [address] [place] [address] * Pap Smear (03/18/2022 10:44 AM EDT) Case Report Cytology Case: [id number] Authorizing Provider: Jemima Inman Collected: 03/18/2022 1044 Ordering Location: Obstetrics & Gynecology Received: 03/19/2022 0929 First Screen: Delma Beltran Specimen: ThinPrep Pap Test, Liquid-Based Cervical/Vaginal, CERVICAL/VAGINAL 03/26/2022 4:15 PM EDT [facility] Interpretation NEGATIVE FOR INTRAEPITHELIAL LESION OR MALIGNANCY 03/26/2022 4:15 PM EDT [facility] at 1615 EDT Specimen Adequacy Satisfactory for evaluation; endocervical/philip sformation zone component present. Slide scanned and imaged by [facility] with manual review of all selected pate. 03/26/2022 4:15 PM EDT [facility] Cervical cytology is a screening test primarily for squamous cancers and precursors and has associated false negative and positive results. New technologies such as liquid based sampling may decrease but will not eliminate all false negative results. Regular screening and follow-up of unexplained clinical signs and symptoms are recommended to minimize false negative results. Please see the ASCCP website (www.asccp.org)fo r followup recommendations. If HPV testing was requested, correlation with the results is suggested (please call Microbiology at [phone] for results). 03/26/2022 4:15 PM EDT [facility] Menstrual Status Cyclic 03/26/20 4:15 PM EDT [facility] Contraceptive History Not Applicable 03/26/2022 4:15 PM EDT [facility] Screening Type Routine Screen 2021 4:15 PM EDT [facility] High Risk? No 03/26/2022 4:15 PM EDT [facility] HPV Testing Requested? Request HPV Testing Regardless of Pap Test Findings 03/26/2022 4:15 PM EDT [facility] Previous Cancer History No 03/26/2022 4:15 PM EDT [facility] Clinical Information Z01.411 - Encounter for gynecological examination with abnormal finding [ICD-10-CM] 03/26/2022 4:15 PM EDT [facility] Last Menstrual Period 02/25/2022 03/26/2022 4:15 PM EDT [facility] Swab Vaginal and cervical cytologic material / Unknown Non-blood Collection / Unknown 03/18/2022 10:44 AM EDT 03/19/2022 9:29 AM EDT Jemima Inman APRN, CNM LAB CYTOLOGY ORDERA BLES Final Result [facility] [address] [place] [address] from Last 3 Months or Most Recently Relevant to Health Maintenance Care Teams Riveter Pneumatic Relationship Specialty Start Date End Date Margareth Bucio PA [address] [place] [address] PCP - General 02/15/21
--- OUTSIDE RECORDS SUMMARY | 2025-03-26 11:36 | XMS_ITS | Encounter Summary ---
Author Organization Healthcare Address [address] [place] [address] Care Team Providers Care Finisher Machine Name Role Phone Margareth Bucio Primary Care Provider Encounter Details Date Type Department Care Team (Late st Contact Info) Description 04/04/2022 Outside Procedure External Location [address] [place] [address] Jemima Love APRN, CN [address] [place] [address] Social History Tobacco Use Types Packs/Day Years [...] on file Sexual Orientation Not on file COVID-19 Exposure Response Date Recorded In the last 10 days, have yo u been in contact with someone who was confirmed or suspected to have Coronavirus/COVID-19? No / Unsure 03/18/2022 10:01 AM EDT documented as of this encounter Plan of Treatment Not on file documented as of this encounter Procedures Procedure Name Priority Date/Time Associated Diagnosis Comments US THYROID 04/04/2022 1:04 PM EDT documented in this encounter Results * US Thyroid (04/04/2022 1:04 PM EDT) Anatomical Region Laterality Modality Thyroid, Neck Ultrasound 04/04/2022 1:04 PM EDT Narrative 04/04/2022 4:27 [place] [address] Name: CHERRI METZ Exam Date: 04/04/2022 : 1980 Age 41 Gender: F Physician: JEMIMA LOVE Facility: [facility] Facility HSV: Outpatient Exam: THYROID US Thyroid ultrasound HISTORY: Thyromegaly. PROCEDURE: Ultrasound images of the thyroid were obtained. FINDINGS: Right lobe of the thyroid measures 4 x 2 x 2 cm. Left lobe of the thyroid measures 6 x 2 x 1 cm. Isthmus measures up to 0.4 cm. There is a 0.3 cm colloid cyst identified in the left lobe of thyroid. No other nodule is identified. IMPRESSION: Small colloid cyst within the left lobe thyroid. No dominant mass identified. Films reviewed , interpreted and dictated by Dr. Cason. Transcribed by Sarbjit Bryant PA-C. Dictated By: SANFORD CASON Transcribed By: Gonzalo Cason Transcribed On: 04/04/2022 4:15 PM Electronically signed by: SANFORD CASON 04/04/2022 Thank you for referring CHERRI METZ to [facility]. Legally authenticated by YOAV COUCH 2022-04-04 16:15:05 Procedure Note Provider, [facility] - 04/04/2022 [place] [address] Name: CHERRI METZ Exam Date: 04/04/2022 : 1980 Age 41 Gender: F Physician: JEMIMA LOVE Facility: [facility] Facility HSV: Outpatient Exam: THYROID US Thyroid ultrasound HISTORY: Thyromegaly. PROCEDURE: Ultrasound images of the thyroid were obtained. FINDINGS: Right lobe of the thyroid measures 4 x 2 x 2 cm. Left lobe ofthe thyroid measures 6 x 2 x 1 cm. Isthmus measures up to 0.4 cm. There is a0.3 cm colloid cyst identified in the left lobe of thyroid. No other noduleis identified. IMPRESSION: Small colloid cyst within the left lobe thyroid. No dominantmass identified. Films reviewed , interpreted and dictated by Dr. Cason. Transcribed by Sarbjit Bryant PA-C. Dictated By: SANFORD CASON Transcribed By: Gonzalo Cason Transcribed On: 04/04/2022 4:15 PM Electronically signed by: SANFORD CASON 04/04/2022 Thank you for referring CHERRI METZ to [facility]. Legally authenticated by YOAV COUCH 2022-04-04 16:15:05 us Jemima Love APRN, CNM [facility] US PROCEDURES F inal Result documented in this encounter Visit Diagnoses Not on filedocumented in this encounter Care Teams Finisher Machine Relationship Specialty Start Date End Date Margareth Bucio PA [address] [place] [address] PCP - General 02/15/21 documented as of this encounter
--- OUTSIDE RECORDS SUMMARY | 2025-03-26 11:36 | XMS_ITS | Encounter Summary ---
Author Organization Healthcare Address [address] [place] [address] Care Team Providers Care Wood Window And Door Craftsman Name Role Phone Margareth Bucio Primary Care Provider Reason for Visit * Reason Comments Med Refill Encounter Details Date Type Department Care Team (Late st Contact Info) Description 06/25/2021 Refill [facility] [address] [place] [address] Jemima Inman, CM, [facility] [address] [place] [address] Social History Tobacco Use Types Packs/Day Years Used Date Smoking Tobacco: Every Day Comments Unknown Sex and Gender Information Value Date Recorded Sex Assigned at Not on file Legal Sex Female 6:59 PM EDT Gender Identity Not on file Sexual Orientation Not on file documented as of this encounter Plan of Treatment Not on file documented as of this encounter Visit Diagnoses Not on filedocumented in this encounter Care Teams Wood Window And Door Craftsman Relationship Specialty Start Date End Date Margareth Bucio PA [address] [place] [address] PCP - General 02/15/21 documented as of this encounter
[2025-03-26 11:43] LABS: Microscopic, Urine URINE MICROSCOPIC (MICROSCOPIC)
[2025-03-26 11:55] LABS: Appearance,Urine CLEAR (Clear); Blood, Urine 2+ (Negative); Color,Urine YELLOW (Yellow); Glucose,Urine (UA) TRACE (Negative); Ketones,Urine Negative (Negative); Leukocyte Esterase,Urine TRACE (Negative); Nitrate,Urine POSITIVE (Negative); Protein,Urine 2+ (Negative); Specific Gravity, Urine 1.025 (1.005-1.030)
[2025-03-26 12:06] LABS: Bilirubin,Urine Negative (Negative)
[2025-03-26 12:07] LABS: RBC,Urine Occasional #/hpf (0-3)
[2025-03-26 12:08] LABS: Bacteria,Urine 1+ /lpf
--- NOTE | 2025-03-26 12:32 | CT_ITS ---
PROCEDURE INFORMATION: Exam: CT Abdomen And Pelvis With Contrast Exam date and time: 03/26/2025 1:36 PM Age: 44 years old Clinical indication: Abdominal pain; Additional info: Left flank pain TECHNIQUE: Imaging protocol: Computed tomography of the abdomen and pelvis with contrast. Total images: 267 Radiation optimization: All CT scans at this facility use at least one of these dose optimization techniques: automated exposure control; mA and/or kV adjustment per patient size (includes targeted exams where dose is matched to clinical indication); or iterative reconstruction. Contrast material: ISOVUE; Contrast volume: 75 ml; Contrast route: IV; COMPARISON: CT - [id number] CT abdomen pelvis wo/w con 11/05/2018 10:39 AM FINDINGS: Lungs: Lung bases are clear. Diaphragm: Small hiatal hernia. Liver: There is a diffuse decrease in hepatic parenchymal density, consistent with mild fatty infiltration. Gallbladder and biliary ducts: Normal. No calcified stones. No ductal dilation. Pancreas: Normal. No ductal dilation. Spleen: Normal. No splenomegaly. Adrenal glands: Normal. No mass. Kidneys and ureters: Punctate calcification noted at the left ureterovesicular junction with left hydronephrosis present. Right kidney is within normal limits. Stomach and bowel: Unremarkable. No obstruction. No mucosal thickening. Appendix: No evidence of appendicitis. Intraperitoneal space: Normal. No significant fluid collection. Vasculature: Mild atherosclerotic disease. Lymph nodes: Unremarkable. No enlarged lymph nodes. Urinary bladder: Unremarkable as visualized. Reproductive: Right adnexal cyst is present measuring up to 2.5 cm. Prominence of the periuterine vasculature again noted. Findings may be consistent with pelvic congestion syndrome. 1.8 cm left adnexal cyst. Bones/joints: The lumbar spine demonstrates mild degenerative changes at multiple levels. Soft tissues: A small umbilical hernia is present without inflammation. IMPRESSION: 1. Punctate calcification noted at the left ureterovesicular junction with left hydronephrosis present. 2. There is a diffuse decrease in hepatic parenchymal density, consistent with mild fatty infiltration. 3. Bilateral adnexal cysts. 4. Prominence of the periuterine vasculature again noted. Findings may be consistent with pelvic congestion syndrome.
--- NOTE | 2025-03-26 12:36 | HMH.EDGENADL ---
Discharge Plan Disposition Chief Complaint: PAIN Prescriptions Prescriptions: No Action omeprazole 40 MG capsule,delayed release(DR/EC) 40 mg .Route DAILY Rx Instructions: TAKE ONE CAPSULE BY MOUTH DAILY FOR ACID REFLUX linaclotide 290 MCG capsule 290 mcg PO DAILY Rx Instructions: TAKE ONE CAPSULE BY MOUTH EVERY MORNING FOR CONSTIPATION Referrals Follow up/Referrals: Provider,Referral, [Primary Care Provider, Medical] - See instructions Print Language Print Language: Turkmen Discharge ED Provider: Shanita Echeverria General Adult HPI General Chief complaint: PAIN Stated complaint: Lower abd. pain, Burning sensation when urinating Time Seen by Provider: 03/26/25 12:19 Mode of Arrival: Ambulatory Source of Information: Patient Description of Symptoms (Recalled from ER Triage Doc. by RN): Pt presents with c/o left flank pain since 03-24-25. Pt states she has also had burning with urination and urinary frequency. pt has a hx of kidney stones. History of Present Illness HPI narrative: Patient is a 44-year-old with past medical history significant for history of urolithiasis 2 years ago presents to the emergency department with burning with urination and urinary frequency for 2 days. Patient has also developed left flank pain without nausea vomiting or fever. Pain is moderate to severe in her pelvis and radiating to her left flank. Patient is a daily smoker. Related Data Home Medications ?Medication ?Instructions ?Recorded ?Confirmed linaclotide 290 mcg capsule 290 mcg PO DAILY constipation 08/16/20 02/17/22 omeprazole 40 mg capsule,delayed 40 mg .Route DAILY GERD 08/16/20 02/17/22 release Allergies Allergy/AdvReac Type Severity Reaction Status Date / Time sulfamethoxazole (From Allergy Rash Verified 02/17/22 09:53 Bactrim) trimethoprim (From Bactrim) Allergy Rash Verified 02/17/22 09:53 [facility] Disclaimer: The information contained in this section may have been updated after the patient was seen, as this information can be updated by other users. Medical History (Updated 04/14/20 @ 14:08 by Luciana Landon APRN) Back Pain Social History Smoking Status: Current every day smoker tobacco type: cigarettes packs per day: 1 second hand exposure: Yes alcohol intake: never substance use type: denies use current occupational status: unemployed Travel in the last 8 weeks?: None household members: spouse and children housing: house current occupational exposures/hazards: No caffeine: Yes Have you lived/traveled outside [place] in past 30 days?: No Contact w/someone who lives/traveled outside [place] past 30 days?: No Exposure to someone with infectious disease in past 14 days?: No Do you have a fever (greater than 100.4 F or 38 C)?: No Have you tested positive for COVID-19?: No Exposed to someone with COVID-19 in past 14 days?: No Do you have a sore throat?: No Do you have a cough?: No Do you have any weakness?: No Do you have any diarrhea?: No Are you experiencing any unusual bleeding?: No Do you have any muscle aches/pain?: No Do you have any abdominal pain?: No Are you experiencing loss of taste or smell?: No Other Medical History Have you received the Flu Vaccine for this season: No Have you received the Pneumonia Vaccine: No ROS Obtained: Yes All systems reviewed & no additional complaints except as documented Physical Exam General General appearance: alert and in no apparent distress Head Head exam: atraumatic and normocephalic Eye Eye exam: Present normal appearance ENT ENT exam: Present mucous membranes dry Chest Chest inspection: Present normal inspection and symmetric chest wall rise Respiratory Respiratory exam: Present normal lung sounds bilaterally; Absent respiratory distress Cardiovascular Cardiovascular exam: Present normal rhythm and tachycardia Abdominal Exam Abdominal exam: Present soft, tenderness (Suprapubic) and guarding (Left lower quadrant); Absent distention Back Exam Back exam: Present CVA tenderness (L) Neurological Exam Neurological exam: Present alert and oriented X3 Skin Skin exam: Present warm and dry Medical Decision Making Medical Records Screening: Per USPSTF and CDC recommendations, given the prevalence of disease in our region, it is our hospital?s policy to screen for HIV and viral Hepatitis for all patients aged 18 and over and those with ongoing risk factors. Rony Inquiry Pt receiving controlled substance: No Vital Signs: 03/26/25 11:34 03/26/25 12:00 03/26/25 12:30 Temperature 98.2 F Temperature Source Oral Pulse Rate 68 67 Pulse Rate [Right] 86 Respiratory Rate 18 18 18 Blood Pressure 112/72 123/65 Blood Pressure [Right Arm] 116/76 Blood Pressure Mean 82 87 Blood Pressure Mean [Right Arm] 89 Blood Pressure Source [Right Arm] Automatic Cuff Blood Pressure Position [Right Arm] Sitting 02 Sat by Pulse Oximetry 96 100 99 03/26/25 13:00 03/26/25 13:30 03/26/25 14:09 Temperature Temperature Source Pulse Rate 63 59 L 63 Pulse Rate [Right] Respiratory Rate Blood Pressure 114/69 Blood Pressure [Right Arm] Blood Pressure Mean Blood Pressure Mean [Right Arm] Blood Pressure Source [Right Arm] Blood Pressure Position [Right Arm] 02 Sat by Pulse Oximetry 100 100 100 03/26/25 14:30 Temperature Temperature Source Pulse Rate 59 L Pulse Rate [Right] Respiratory Rate 14 Blood Pressure 103/65 L Blood Pressure [Right Arm] Blood Pressure Mean 77 Blood Pressure Mean [Right Arm] Blood Pressure Source [Right Arm] Blood Pressure Position [Right Arm] 02 Sat by Pulse Oximetry 100 Lab Data Lab Results 03/26/25 11:31: Urine Color Yellow, Urine Appearance Clear, Urine pH 6.0, Ur Specific [place] 1.025, Urine Protein 2+ A, Urine Glucose (UA) Trace, Urine Ketones Negative, Urine Blood 2+ A, Urine Nitrate Positive A, Urine Bilirubin Negative, Urine Urobilinogen 2.0, Ur Leukocyte Esterase Trace, Urine RBC Occasional, Urine WBC 3-5, Ur Squamous Epith Cells 5-10, Urine Bacteria 1+ 03/26/25 12:48: WBC 6.6, RBC 3.94 L, Hgb 12.5, Hct 37.3, MCV 94.7, MCH 31.7 H, MCHC 33.5, RDW 12.7, Plt Count 254, MPV 10.5 H, Neut % (Auto) 66.4, Lymph % (Auto) 21.9, [place] % (Auto) 9.2, Eos % (Auto) 1.4, Baso % (Auto) 0.9, Neut # (Auto) 4.4, Lymph # (Auto) 1.5, [place] # (Auto) 0.6, Eos # (Auto) 0.1, Baso # (Auto) 0.1, Sodium 137, Potassium 5.1, Chloride 104, Carbon Dioxide 26, Anion Gap 12.1, BUN 9, Creatinine 0.80, Estimated Creat Clear 67, Estimated GFR 78, Est GFR ( Amer) 94, Glucose 93, Calcium 8.6, Total Bilirubin 0.7, AST 40 H, ALT 12, Alkaline Phosphatase 37 L, Total Protein 7.4, Albumin 4.4, Globulin 3.0, Albumin/Globulin Ratio 1.5, Lipase 70, Serum HCG, Qual Negative 03/26/25 12:48 03/26/25 12:48 Orders (Tests/Meds): ED MEDICATIONS Generic Name Dose Route Start Last Admin Trade Name Yassine PRN Reason Stop Dose Admin Ceftriaxone Sodium 2 gm/ 100 mls @ 200 mls/hr 03/26/25 15:15 Sodium Chloride IV 04/05/25 15:14 Q24H ANDREA Discontinued Medications Generic Name Dose Route Start Last Admin Trade Name Freq PRN Reason Stop Dose Admin Acetaminophen 1,000 mg 03/26/25 13:06 03/26/25 13:07 Acetaminophen 1,000mg/100ml Vial IV 03/26/25 13:07 1,000 mg ONCE ONE Administration Lactated Ringer's 1,000 mls @ 999 mls/hr 03/26/25 12:35 03/26/25 12:58 Lactated Ringer's 1000 Ml Bag IV 03/26/25 13:35 999 mls/hr .Q1H1M ONE Administration Iopamidol 75 ml 03/26/25 13:35 03/26/25 13:36 Iopamidol-370 (76%);100ml Bottle IV 03/26/25 13:36 75 ml ONCE ONE Administration Morphine Sulfate 4 mg 03/26/25 12:32 03/26/25 12:58 Morphine 4mg/Ml Syringe IV 03/26/25 12:33 Not Given ONCE ONE Ondansetron HCl 4 mg 03/26/25 12:32 03/26/25 12:58 Ondansetron 4mg/2ml Vial IV 03/26/25 12:33 Not Given ONCE ONE Sodium Chloride 10 ml 03/26/25 13:35 03/26/25 13:36 Sodium Chloride 0.9% 10ml Syr (Rad Only) IV 03/26/25 13:36 10 ml ONCE ONE Administration ORDERS Category Date Time Status CT abdomen pelvis w con Stat Cat Scan 03/26/25 12:32 Completed Complete Blood Count Auto Diff Stat Lab 03/26/25 12:48 Completed Comprehensive Metabolic Panel Stat Lab 03/26/25 12:48 Completed HCG Qualitative, Serum Stat Lab 03/26/25 12:48 Completed Lipase Stat Lab 03/26/25 12:48 Completed Urinalysis and Microscopic Stat Lab 03/26/25 11:31 Completed Blood Culture Stat Micro 03/26/25 15:09 Ordered Urine Culture Stat Micro 03/26/25 11:31 Received Medical Decision Narrative: In summary, this 44-year-old female presents to the emergency department today with dysuria increased urinary frequency and flank pain. On initial evaluation patient is hemodynamically stable afebrile saturating appropriately on room air in no acute distress. Differential diagnosis includes but is not limited to pyelonephritis cystitis urolithiasis diverticulitis. Based on these concerns, I ordered CBC CMP lipase blood cultures UA beta-hCG CT abdomen pelvis with IV contrast. Patient received 1 L of LR IV Tylenol (offered IV morphine but patient declined at this time) Zofran, 1 L of LR 2 g of ceftriaxone for treatment. Labs personally reviewed demonstrate UA with pyuria and hematuria bacteria nitrate positive, no leukocytosis normal creatinine. CT imaging personally interpreted demonstrate left hydronephrosis, calculus within the distal ureter. I had an interactive discussion with Dr. Nowak at [facility] accepted patient to ED transfer for evaluation of infected obstructing kidney stone as we do not have a urologist on-call today. On reassessment patient has improvement of symptoms is agreeable to transfer due to infected kidney stone POV. Critical Care Critical Care Time Critical Care Time: No
[2025-03-26 12:56] LABS: Basophils # 0.1 K/mm3 (0-0.2); Basophils % 0.9 % (0.1-2.0); Eosinophils # 0.1 Kmm3 (0.0-0.4); Eosinophils % 1.4 % (0.1-12.0); Hematocrit 37.3 % (37.0-47.0); Hemoglobin 12.5 g/dL (12.2-16.2); Immature Granulocytes # 0.01 10^3uL; Immature Granulocytes % 0.2 %; Lymphocytes # 1.5 K/mm3 (0.7-4.5); Lymphocytes % 21.9 % (10-50); Mean Corpuscular HGB Conc 33.5 g/dL (31.8-35.4); Mean Corpuscular Hemoglobin 31.7 pg (27.0-31.2); Mean Corpuscular Volume 94.7 fl (81-99); Mean Platelet Volume 10.5 fl (7.4-10.4); Monocytes # 0.6 K/mm3 (0.1-1.0); Monocytes % 9.2 % (1.7-9.3); Neutrophils # 4.4 K/mm3 (1.8-7.8); Neutrophils % 66.4 % (37.0-80.0); Nucleated Red Blood Cells # 0 10^3/uL; Nucleated Red Blood Cells % 0 %; Platelet Count 254 K/mm3 (142-424); Red Blood Count 3.94 M/mm3 (4.20-5.40); Red Cell Distribution Width 12.7 % (11.5-17.5); Red Cell Distribution Width-SD 44.5 fL; White Blood Count 6.6 K/mm3 (4.8-10.8)
[2025-03-26] MEDS: LACTATED RINGERS 1000ML 1,000 ML 999 ML IV (12:58)
[2025-03-26 13:01] LABS: Albumin Level 4.4 g/dl (3.5-5.0); Chloride 104 mmol/L (98-107); Potassium 5.1 mmoL/L (3.5-5.1); Sodium 137 mmol/L (136-145)
[2025-03-26 13:04] LABS: Alanine Aminotransferase 12 U/L (12-78); Albumin/Globulin Ratio 1.5 (1.1-1.8); Alkaline Phosphatase 37 U/L (38-126); Anion Gap 12.1 mEq/L (5-15); Aspartate Amino Transferase 40 U/L (14-36); Bilirubin,Total 0.7 mg/dl (0.2-1.3); Blood Urea Nitrogen 9 mg/dl (7-17); Carbon Dioxide 26 mmol/L (22.0-30.0); Creatinine Clearance Estimated 67 mL/min (50-200); Estimated Glomerular Filt Rate 78 ml/min (>60); GFR (African American) 94 ML/MIN (>60); Lipase 70 U/L (23-300); Total Protein,Serum 7.4 g/dl (6.3-8.2)
[2025-03-26 13:05] LABS: Calcium 8.6 mg/dl (8.4-10.2); Glucose 93 mg/dl (74-100)
[2025-03-26] MEDS: ACETAMINOPHEN 1,000MG/100ML VIAL 1000 MG IV (13:07)
[2025-03-26 13:12] LABS: HCG Qualitative, Serum Negative (Negative)
[2025-03-26] MEDS: SODIUM CHLORIDE 0.9% 10ML SYR (RAD ONLY) 10 ML IV (13:36)
[2025-03-26] MEDS: IOPAMIDOL-370 (76%);100ML BOTTLE 75 ML IV (13:36)
--- NOTE | 2025-03-26 15:05 | PC.NURSE ---
called [facility] for transfer. will call back when thier provider is avail
--- NOTE | 2025-03-26 15:13 | PC.NURSE ---
Dr Echeverria on the phone with at this time
[2025-03-26] MEDS: CEFTRIAXONE SODIUM 2 GM in 0.9 % SODIUM CHLORIDE 100 ML IV (15:29)
--- NOTE | 2025-03-26 15:54 | PC.NURSE ---
report called to Jayla THURSTON at [facility].
--- NOTE | 2025-03-27 19:37 | PC.NURSE ---
spoke with [facility] ED Charge-KARENA Montgomery and informed her of the urine culture preliminary results, gram negative rods
--- NOTE | 2025-03-29 09:40 | PC.NURSE ---
Culture results forwarded to [facility] where the pt was transferred.
== END 2025-03-26 16:04 | disposition short-term general hospital (02) ==
PROVIDERS: Emergency Provider Student in an Organized Health Care Education/Training Program
DX: N13.0 Hydronephrosis with ureteropelvic junction obstruction (principal); R10.30 Lower abdominal pain, unspecified; R30.0 Dysuria; R35.0 Frequency of micturition; F17.210 Nicotine dependence, cigarettes, uncomplicated
CPT/HCPCS: 74177; 80053; 81001; 83690; 84703; 85025; 87040; 87086; 87088; 87186; 96361; 96365; 96375; 99285; J0131; J0696; J7120; Q9967